=== PATIENT | female | born 1950 | race Caucasian/White ===

== ENCOUNTER → 2021-12-02 | Outpatient (CLI) | payer MEDICARE, OTHER ==
--- NOTE | 2021-12-02 09:48 | CA ---
Transthoracic Echo Report Name: Marnie Molina Age: 71 Gender: F : 1950 Exam Date: 12/02/2021 08:40 Exam Location: [place] [facility] Ht (in): 65 Wt (lb): 165 Ordering Physician: Lili Hernandez MD ([id number]) Attending/Referring Phys: Rehanger Judit Mcguire RDCS Procedure CPT: Indications: I10 HTN Cardiac Hx: No cardiac hx Technical Quality: Good Contrast 1: Total Dose (mL): Contrast 2: Total Dose (mL): MEASUREMENTS (Male / Female) Normal Values 2D ECHO LV Diastolic Diameter PLAX 2.2 cm 4.2 - 5.9 / 3.9 - 5.3 cm LV Systolic Diameter PLAX 1.3 cm IVS Diastolic Thickness 1.3 cm 0.6 - 1.0 / 0.6 - 0.9 cm LVPW Diastolic Thickness 1.3 cm 0.6 - 1.0 / 0.6 - 0.9 cm LV Relative Wall Thickness 1.1 RV Internal Dim ED PLAX 2.4 cm LA Volume 39.3 cm??? 18 - 58 / 22 - 52 cm??? M-MODE Aortic Root Diameter MM 3.1 cm LA Systolic Diameter MM 2.8 cm LA Ao Ratio MM 0.9 MV E Point Septal Separation 0.5 cm AV Cusp Separation MM 2.0 cm DOPPLER AV Peak Velocity 108.1 cm/s AV Peak Gradient 4.7 mmHg MR Peak Velocity 362.3 cm/s MR Peak Gradient 52.5 mmHg MV E' Velocity 6.7 cm/s TR Peak Velocity 200.3 cm/s TR Peak Gradient 16.1 mmHg Right Ventricular Systolic Press 20.2 mmHg FINDINGS Left Ventricle Mildly increased septal wall thickness. Mildly increased posterior wall thickness. Left ventricular ejection fraction is estimated at 55-60 %. Left ventricular cavity size normal. Right Ventricle The right ventricle is normal in size and function. Right Atrium The right atrium is normal in size. Left Atrium The left atrium is normal in size. Mitral Valve Structurally normal mitral valve without significant stenosis or prolapse. There is mild mitral regurgitation. Aortic Valve Structurally normal aortic valve without significant sclerosis or stenosis. There is no aortic regurgitation. Tricuspid Valve Structurally normal tricuspid valve without significant stenosis. Pulmonary artery systolic pressure is normal. Trace tricuspid regurgitation. Pulmonic Valve Structurally normal pulmonic valve without significant stenosis. There is no pulmonic regurgitation. Pericardium Normal pericardium without effusion. Aorta Normal aortic root dimension. CONCLUSIONS LVH with preserved LV systolic function Previewed by: Dr. Vernon Puentes MD (Electronically Signed) Final Date: 02 December 2021 09:47
--- NOTE | 2021-12-02 11:35 | CA ---
Exercise Stress Test Report Name: Marnie Molina Exam Date: 12/02/2021 09:53 Exam Location: [place] [facility] Ht (in): 65 Wt (lb): 165 BSA: 1.82 Ordering Phys: Lili Hernandez MD Referring Phys: ИРИНА,, Technologist: Prosper Burgos Age: 71 Gender: F : 1950 Procedure CPT: Indications: I10 HTN ICD-10 Codes: Patient History: Medications: SYNTHROID,,,,,, LISINOPRIL,,,,,, METOPROLOL,,,,,, CYTELOPRAM,,,,, Meds past 24 hrs: Pretest Chest Pain: STRESS TEST Ludin Protocol Exercise Duration (min:sec): 08:[address] Depressions (mm): Angina Score: Gustafson Score: Resting HR (bpm): 79 Peak HR (bpm): 140 Resting BP (mmHg): 144 / 94 Peak BP (mmHg): 219 / 119 MPHR: 149 Target HR: 127 % MPHR: 94 METS: 9.7 Total Dose: Peak Dose: Atropine: Double Product: 59148 BP Response: Stress Termination: MAX EXERTION/TARGET HR Stress Symptoms: LIGHTHEADEDNESS Stress Summary: ECG ANALYSIS Resting ECG: Stress ECG: CONCLUSIONS Baseline heart rate 73 beats a minute, Baseline blood pressure 144/94 mmHg Patient exercised on a Ludin protocol for 8 minutes She had occasional PVCs Artifact on EKG Occasional lightheadedness with normal blood pressure and heart rate at recovery No ECG evidence for ischemia No sustained or nonsustained arrhythmias Dr. Vernon Puentes MD (Electronically Signed) Final Date: 02 December 2021 11:34
--- NOTE | 2021-12-02 12:58 | NM ---
EXAMINATION TYPE: NM stress cardiolite complete DATE OF EXAM: 12/02/2021 COMPARISON: NONE HISTORY: Chest pain TECHNIQUE: After the intravenous administration of 9.7 mCi Tc 99m Sestamibi - Rest images obtained 4 5 minutes post injection. The patient exercised using a DAMIÁN protocol and 1 minute prior to peak e xercise was injected with 25.8 mCi Tc 99m Sestamibi - Stress images obtained 45 minutes post injectio n. FINDINGS: Targeted heart rate was achieved during performance of the study. Review of stress and rest SPECT juan david ges demonstrates no distinct perfusion abnormality. Gated analysis shows normal wall motion with an estimated left ventricular ejection fraction of 61 %. IMPRESSION: No scintigraphic evidence for reversible ischemia
== END | disposition home or self-care (01) ==
LOC: RADNMMAIN 08:16
PROVIDERS: ATTEND Internal Medicine Cardiovascular Disease
DX: I10 Essential (primary) hypertension (principal); R42 Dizziness and giddiness
CPT/HCPCS: 93017; 93306; 78452; A9500

== ENCOUNTER → 2022-06-03 | Outpatient (CLI) | payer MEDICARE ==
--- NOTE | 2022-06-04 07:02 | MM ---
Reason for Exam: Screening (asymptomatic). Last mammogram was performed 2 year(s) and 4 month(s) ago. Patient History: Menarche at age 13. First Full-Term at age 18. Hysterectomy at age 25. Postmenopausal. Cyst Aspiration on the Right side. Risk Values: Anjali 5 year model risk: 1.3%. NCI Lifetime model risk: 3.5%. Prior Study Comparison: 05/11/2018 Bilateral MG screening mammo w CAD - 2, [facility]. 01/31/2020 Bilateral MG screening mammo w CAD - 2, [facility]. Tissue Density: There are scattered fibroglandular densities. Findings: Analyzed By CAD. Benign-appearing vascular calcifications bilaterally is redemonstrated. There is no suspicious new group of microcalcifications or new suspicious mass in either breast. Overall Assessment: Negative, BI-RAD 1 Management: Screening Mammogram of both breasts in 1 year. A clinical breast exam by your physician is recommended on an annual basis and results should be correlated with mammographic findings. Electronically signed and approved by: Randy Islas M.D.
== END | disposition home or self-care (01) ==
LOC: RADMAMWWP 08:57
PROVIDERS: ATTEND Internal Medicine Geriatric Medicine
DX: Z12.31 Encounter for screening mammogram for malignant neoplasm of breast (principal)
CPT/HCPCS: 77063; 77067

== ENCOUNTER → 2023-01-06 | Outpatient (CLI) | payer MEDICARE ==
--- NOTE | 2023-01-06 18:57 | XR ---
EXAMINATION TYPE: XR chest 2V DATE OF EXAM: 01/06/2023 1:37 PM COMPARISON: None TECHNIQUE: XR chest 2V Frontal and lateral views of the chest. CLINICAL INDICATION:Female, 72 years old with history of R05.9 cough; FINDINGS: Lungs/Pleura: There is no evidence of pleural effusion, focal consolidation, or pneumothorax. Pulmonary vascularity: Unremarkable. Heart/mediastinum: Cardiomediastinal silhouette is unremarkable. Musculoskeletal: No acute osseous pathology. IMPRESSION: No acute cardiopulmonary disease/process.
== END | disposition home or self-care (01) ==
LOC: RADXRMAIN 13:23
PROVIDERS: ATTEND Internal Medicine Geriatric Medicine
DX: R05.9 Cough, unspecified (principal)
CPT/HCPCS: 71046

== ENCOUNTER → 2024-04-12 | Outpatient (CLI) | payer MEDICARE ==
[2024-04-12 11:05] LABS: African American GFR (CKD) 89 (>60 ml/min/1.73 sqM); Blood Urea Nitrogen 28 mg/dL (7-17); Non-African American GFR(CKD) 77 (>60 ml/min/1.73 sqM)
--- NOTE | 2024-04-12 12:26 | CT ---
EXAMINATION TYPE: CT chest w con DATE OF EXAM: 04/12/2024 COMPARISON: None CLINICAL INDICATION: Female, 73 years old with history of R50.9 FEVER; PHH, chest feels heavy, fever and cough. TECHNIQUE: CT scan of the chest is performed with IV Contrast, patient injected with 100ml mL of Isovue 300. IA P Images are created on CT scanner and reviewed. 3D reconstructed images are created on an [employer] workstation and reviewed. CT DLP: 247.80 mGycm Automated exposure control for dose reduction was used. FINDINGS: LUNGS: The lungs are grossly clear, there is no concerning parenchymal mass or nodule identified. Th ere are a few scattered micronodules. There is no pleural effusion or pneumothorax seen. The tracheobronchial tree is patent. MEDIASTINUM: There are no greater than 1 cm hilar or mediastinal lymph nodes. No pericardial effusi on is seen. OTHER: No additional significant abnormality is seen. IMPRESSION: No acute cardiopulmonary disease. Follow-up recommendations for incidental pulmonary nodules are per [employer] or [employer]. [facility], , 04/12/2024 12:23 PM
== END | disposition home or self-care (01) ==
LOC: RADCTMAIN 10:21
PROVIDERS: ATTEND Internal Medicine Geriatric Medicine
CPT/HCPCS: 36415; 71260; 82565; 84520

== ENCOUNTER → 2024-05-14 | Outpatient (CLI) | payer MEDICARE ==
--- NOTE | 2024-05-14 11:17 | BD ---
EXAMINATION TYPE: Axial Bone Density DATE OF EXAM: 05/14/2024 CLINICAL HISTORY: 73 years old Female. ICD-10 CODE: M899 DISORDER OF BONE , Additional History: Height: 64 Weight: 168 FRAX RISK QUESTIONS: History of Fracture in Adulthood: yes Secondary Osteoporosis: 3. Menopause before 45: yes RISK FACTORS HISTORY OF: History of Wrist Fracture: yes, left When: 2019 Surgery to Spine/Hip(right/left)/Wrist (right/left): left wrist When: 2022 MEDICATIONS: Thyroid Medications: Which medication: Levothyroxine How Long: over 40 years EXAM MEASUREMENTS: Bone mineral densitometry was performed using the [employer]oe[employer] System. Bone mineral density as measured about the Lumbar spine is: ----- L1-L4(G/cm2): 1.041 T Score Values are as follows: ----- L1: -1.9 ----- L2: -1.2 ----- L3: -0.6 ----- L4: -1.3 ----- L1-L4: -1.2 Z Score Values are as follows: ----- L1: -0.5 ----- L2: 0.2 ----- L3: 0.8 ----- L4: 0.1 ----- L1-L4: 0.[address] [facility] Bone mineral density about the R hip (g/cm2): 0.845 Bone mineral density about the L hip (g/cm2): 0.841 T Score values are as follows: -----R Neck: -1.5 -----L Neck: -1.5 -----R Total: -1.3 -----L Total: -1.3 Z Score values are as follows: -----R Neck: 0.1 -----L Neck: 0.1 -----R Total: 0.1 -----L Total: 0.[address] [facility] FRAX%s: The graph provided illustrates a 16.6% chance for a major osteoporotic fx and a 2.9% chance f or the hips probability for fx in 10 years time. IMPRESSION: Osteopenia (T Score between -2.5 and -1). There is slightly increased risk of fracture and the patient may be considered for treatment. Re-Screen 2-5 years. NOTE: T-SCORE=SD OF THE YOUNG ADULT MEAN. [facility], , 05/14/2024 11:15 AM
--- NOTE | 2024-05-15 09:32 | MM ---
Reason for Exam: Screening (asymptomatic). Last mammogram was performed 2 year(s) and 0 month(s) ago. Patient History: Menarche at age 13. First Full-Term at age 18. Hysterectomy at age 25. Postmenopausal. Cyst Aspiration on the Right side. Risk Values: Anjali 5 year model risk: 1.3%. NCI Lifetime model risk: 3.1%. Prior Study Comparison: 05/11/2018 Bilateral MG screening mammo w CAD - 2, [facility]. 01/31/2020 Bilateral MG screening mammo w CAD - 2, [facility]. 06/03/2022 Bilateral MG 3D screening mammo w/cad, [facility]. Tissue Density: There are scattered areas of fibroglandular density. Findings: Analyzed By CAD. There is no suspicious group of microcalcifications or new suspicious mass in either breast. Overall Assessment: Negative, BI-RAD 1 Management: Screening Mammogram of both breasts in 1 year. Patient should continue monthly self-breast exams. A clinical breast exam by your physician is recommended on an annual basis. This exam should not preclude additional follow-up of suspicious palpable abnormalities. Note on Anjali scores and lifetime risk: 1. A Anjali score greater than 3% is considered moderate risk. If this is the case, consider specialist referral to assess eligibility for a risk reducing agent. 2. If overall lifetime risk for the development of breast cancer is 20% or higher, the patient may qualify for future screening with alternating mammogram and breast MRI. [facility], , 05/15/2024 9:29 AM. Electronically signed and approved by: Rena Rasmussen M.D. Radiologist
== END | disposition home or self-care (01) ==
LOC: RADBDWWP 09:44
PROVIDERS: ATTEND Internal Medicine Geriatric Medicine
DX: Z12.31 Encounter for screening mammogram for malignant neoplasm of breast (principal); R50.9 Fever, unspecified; Z78.0 Asymptomatic menopausal state; R92.323 Mammographic fibroglandular density, bilateral breasts; M85.89 Other specified disorders of bone density and structure, multiple sites
CPT/HCPCS: 77063; 77067; 77080

== ENCOUNTER → 2024-08-15 | Outpatient (CLI) | payer MEDICARE ==
[2024-08-15 18:20] LABS: Alternaria alternata IgE <0.10 kU/L; Aspergillus fumagatus IgE <0.10 kU/L; Birch IgE <0.10 kU/L; Cat Epith & Dander IgE 0.22 kU/L; Cladosporian herbarum IgE <0.10 kU/L; Cockroach IgE <0.10 kU/L; Dermato. farinae IgE 0.46 kU/L; Dog Dander IgE <0.10 kU/L; Elm IgE <0.10 kU/L; Maple (Box Elder) IgE <0.10 kU/L; Oak IgE <0.10 kU/L; Ragweed,Common IgE <0.10 kU/L; Red Top (Bentgrass) IgE 0.16 kU/L
== END | disposition home or self-care (01) ==
LOC: LABWHC1 11:17
PROVIDERS: ATTEND Internal Medicine Critical Care Medicine
DX: R05.3 Chronic cough (principal)
CPT/HCPCS: 36415; 82785; 85008; 86003